=== PATIENT | female | born 1940 | race African-American/Black ===

== ENCOUNTER 2017-04-06 04:57 | Emergency (ER) | payer MEDICARE ==
[2017-04-06] MEDS ORDERED: ACETAMINOPHEN 325 MG TABLET PO ONE (05:13)
--- NOTE | 2017-04-06 05:15 | ER Document Report ---
ED Fall - General Stated Complaint: FALL, Head injury Time Seen by Provider: 04/06/17 05:13 Notes: Patient is a 76-year-old female that comes by EMS for chief complaint of fall and head injury. Patient fell out of her bed tonight, states she thinks she hit her head against the dresser. She did not get knocked out, she has not vomited. She is confused with dementia at baseline. She is not on a blood thinner. No other injuries reported. Patient denies pain other than her head. - Related data Home Medications: Current Home Medications No Home Medications 04/06/17 [History] Past Medical History - General Information source: Patient, Relative - Social History Smoking Status: Never Smoker Frequency of alcohol use: None Drug Abuse: None Lives with: Family Family History: Reviewed & Not Pertinent - Past Medical History Cardiac Medical History: Reports: Hx Hypertension Neurological Medical History: Reports: Other - dementia Psychiatric Medical History: Reports: Hx Anxiety, Hx Depression - Immunizations Hx Diphtheria, Pertussis, Tetanus Vaccination: Yes Review of Systems - Review of Systems Constitutional: No symptoms reported EENT: No symptoms reported Cardiovascular: No symptoms reported Respiratory: No symptoms reported Gastrointestinal: No symptoms reported Genitourinary: No symptoms reported Female Genitourinary: No symptoms reported Musculoskeletal: See HPI Skin: No symptoms reported Hematologic/Lymphatic: No symptoms reported Neurological/Psychological: See HPI Physical Exam - Vital signs Vitals: Temp Pulse Resp BP Pulse Ox 98.5 F 54 L 18 141/100 H 98 04/06/17 05:05 04/06/17 05:05 04/06/17 05:05 04/06/17 05:05 04/06/17 05:05 Interpretation: Normal - General General appearance: Appears well, Alert In distress: None - alert, cooperative, follows directions - HEENT Head: Normocephalic. No: Atraumatic - Moderately large hematoma over the left forehead with some ecchymosis; no bleeding, open wounds, or other traumatic findings. Eyes: Normal Extraocular movements intact: Yes Eyelashes: Normal Pupils: PERRL Ears: Normal External canal: Normal Tympanic membrane: Normal Sinus: Normal Nasal: Normal Mouth/Lips: Normal Mucous membranes: Normal Pharynx: Normal Neck: Normal - Respiratory Respiratory status: No respiratory distress Chest status: Nontender Breath sounds: Normal. No: Decreased air movement, Wheezing Chest palpation: Normal - Cardiovascular Rhythm: Regular. No: Tachycardia Heart sounds: Normal auscultation, S1 appreciated, S2 appreciated Murmur: No - Abdominal Inspection: Normal Distension: No distension Bowel sounds: Normal Tenderness: Nontender. No: Tender, Guarding Organomegaly: No organomegaly - Back Back: Normal, Nontender, Tender - Patient states she has pain with general palpation over the cervical area. No midline tenderness of the thoracic or lumbar spine, no saddle anesthesia.. No: CVA tenderness - Extremities General upper extremity: Other - Patient complains of tenderness with palpation over the left wrist. Normal range of motion at the wrist, no signs of trauma, no snuffbox tenderness, normal radial pulse, normal distal neurovascular exam, normal upper extremity exam otherwise bilaterally General lower extremity: Normal inspection, Nontender, Normal strength, Normal temperature - Neurological Neuro grossly intact: Yes Cognition: Normal Orientation: AAOx4 Joel Coma Scale Eye Opening: Spontaneous [place] Coma Scale Verbal: Oriented [place] Coma Scale Motor: Obeys Commands [place] Coma Scale Total: 15 Speech: Normal Motor strength normal: LUE, RUE, LLE, RLE Sensory: Normal - Psychological Associated symptoms: Normal affect, Normal mood - Skin Skin Temperature: Warm Skin Moisture: Dry Skin Color: Normal Course - Re-evaluation Re-evalutation: On exam patient also complains of neck pain and pain over the left wrist with palpation. No obvious deformities or abnormalities. Neurological exam normal other than her confusion at baseline. CAT scan and x-ray imaging are all negative for any acute abnormality. Patient remains unchanged from her baseline per family. She is actually interactive and cooperative. Discussed results with family in detail. Discussed still monitoring for head injury precautions, follow-up, return precautions. They state understanding and agreement. - Vital Signs Vital signs: Temp Pulse Resp BP Pulse Ox 98.5 F 54 L 18 141/100 H 98 04/06/17 05:05 04/06/17 05:05 04/06/17 05:05 04/06/17 05:05 04/06/17 05:05 Discharge - Discharge Clinical Impression: Head injury Qualifiers: Encounter type: initial encounter Qualified Code(s): S09.90XA - Unspecified injury of head, initial encounter Traumatic hematoma of forehead Qualifiers: Encounter type: initial encounter Qualified Code(s): S00.83XA - Contusion of other part of head, initial encounter Condition: Stable Disposition: HOME, SELF-CARE Additional Instructions: The CAT scan imaging and examination do not indicate any concerning abnormality. Give Tylenol for pain, ice the swollen area of the forehead if needed. Please follow head injury precautions listed below. Return for any concerning symptoms. Head Injury Precautions At this point, there is no evidence that your head injury is serious. Observation is necessary, however. Take only clear liquids for the first few hours, unless told otherwise by the doctor. If no pain medication was prescribed, you may take acetaminophen according to the directions on the bottle. Do not take any medication that may alter your level of alertness (unless you've discussed it with the doctor first) . Limit activity for the first 24 hours. Bed rest is best. During the first 24 hours, check to see approximately every two to three hours that the patient is easily arousable, responds normally, and can perform common tasks such as walking without difficulty. Contact your doctor or go to the hospital if any of the following things occur: Persistent vomiting, difficulty in arousing the patient, worsening or continued headache, or failure to improve as expected. Head injuries can cause symptoms that persist for a few days or even a few weeks.
--- NOTE | 2017-04-06 06:50 | RADIOLOGY REPORT (SQ) ---
EXAM DESCRIPTION: CT CERVICAL SPINE WITHOUT COMPLETED DATE/TIME: 04/06/2017 6:30 am REASON FOR STUDY: fall, pain COMPARISON: None. TECHNIQUE: Axial images acquired through the cervical spine without intravenous contrast. Images re viewed with lung, soft tissue and bone windows. Reconstructed coronal and sagittal MPR images review ed. Images stored on PACS. All CT scanners at this facility use dose modulation, iterative reconstruction, and/or weight based d osing when appropriate to reduce radiation dose to as low as reasonably achievable (ALARA). [facility]: Dose Right [facility]: CareDose [facility]: Dose Right [facility]: Teradose 4D [facility]: Smart Compassoft RADIATION DOSE: Up-to-date CT equipment and radiation dose reduction techniques were employed. CTDIv ol: 23.1 mGy. DLP: 1180 mGy-cm. mGy. LIMITATIONS: None. FINDINGS: ALIGNMENT: 0.2 cm degenerative C3 anterolisthesis. Moderate nonspecific reversed lordotic curvature of the cervicothoracic spine which may indicate soft tissue injury or spasm. MINERALIZATION: Normal. VERTEBRAL BODIES: No fractures or dislocation. Right paracentral posterior C1 fusion defect. DISCS: [id number] disc desiccation between the C2 and T5 levels. FACETS, LATERAL MASSES, POSTERIOR ELEMENTS: Moderate spondylosis. Moderate-severe foraminal stenosis at the left a C3, C4, C5, C6, and C7 foramina; moderate -severe foraminal stenosis at the right C4, C5, and C6 foramina. HARDWARE: None in the spine. VISUALIZED RIBS: No fractures. LUNG APICES AND SOFT TISSUES: No significant or acute findings. OTHER: No other significant finding. IMPRESSION: Moderate nonspecific reversed lordotic curvature of the cervicothoracic spine which may indicate soft tissue injury or spasm. No direct evidence of fracture. Moderate spondylosis. Moder ate disc desiccation. TECHNICAL DOCUMENTATION: JOB ID: [id number] Quality ID # [id number]: Final reports with documentation of one or more dose reduction techniques (e.g., Au tomated exposure control, adjustment of the mA and/or kV according to patient size, use of iterative reconstruction technique) 2010 [employer]- All Rights Reserved
--- NOTE | 2017-04-06 06:54 | RADIOLOGY REPORT (SQ) ---
EXAM DESCRIPTION: CT HEAD WITHOUT COMPLETED DATE/TIME: 04/06/2017 6:30 am REASON FOR STUDY: fall, hematoma COMPARISON: None. TECHNIQUE: Axial images acquired through the brain without intravenous contrast. Images reviewed wi th bone, brain and subdural windows. Images stored on PACS. All CT scanners at this facility use dose modulation, iterative reconstruction, and/or weight based d osing when appropriate to reduce radiation dose to as low as reasonably achievable (ALARA). [facility]: Dose Right [facility]: CareDose [facility]: Dose Right [facility]: Teradose 4D [facility]: Smart A[employer]is RADIATION DOSE: Up-to-date CT equipment and radiation dose reduction techniques were employed. CTDIv ol: 28.0 - 64.6 mGy. DLP: 2187 mGy-cm. mGy. LIMITATIONS: Mild motion artifact. FINDINGS: VENTRICLES: Normal size and contour. CEREBRUM: No masses. No hemorrhage. No midline shift. Normal menendez/white matter differentiation. N o evidence for acute infarction. CEREBELLUM: No masses. No hemorrhage. No alteration of density. No evidence for acute infarction. EXTRAAXIAL SPACES: No fluid collections. No masses. ORBITS AND GLOBE: No intra- or extraconal masses. Normal contour of globe without masses. CALVARIUM: No fracture. PARANASAL SINUSES: No fluid or mucosal thickening. SOFT TISSUES: Mild scalp swelling. OTHER: No other significant finding. IMPRESSION: No acute intracranial findings. TECHNICAL DOCUMENTATION: JOB ID: [id number] Quality ID # [id number]: Final reports with documentation of one or more dose reduction techniques (e.g., Au tomated exposure control, adjustment of the mA and/or kV according to patient size, use of iterative reconstruction technique) 2010 [employer]- All Rights Reserved
--- NOTE | 2017-04-06 06:56 | RADIOLOGY REPORT (SQ) ---
EXAM DESCRIPTION: WRIST LEFT 3 VIEWS COMPLETED DATE/TIME: 04/06/2017 6:31 am REASON FOR STUDY: fall, pain COMPARISON: None. NUMBER OF VIEWS: Three views. TECHNIQUE: AP, lateral, and oblique radiographic images acquired of the left wrist. LIMITATIONS: None. FINDINGS: MINERALIZATION: Osteopenia. BONES: No acute fracture or dislocation. No worrisome bone lesions. Normal alignment. Moderate lef t 1st carpometacarpal osteoarthritis. SOFT TISSUES: No soft tissue swelling. No foreign body. OTHER: No other significant finding. IMPRESSION: NO RADIOGRAPHIC EVIDENCE OF ACUTE INJURY. TECHNICAL DOCUMENTATION: JOB ID: [id number] [employer]- All Rights Reserved
[2017-04-06 07:19] VITALS: BP 132/90
== END 2017-04-06 07:20 | disposition home or self-care (01) ==
LOC: ER 04:57
DX: S09.90XA Unspecified injury of head, initial encounter (principal); S00.83XA Contusion of other part of head, initial encounter; W06.XXXA Fall from bed, initial encounter
CPT/HCPCS: 99284; 73110; 70450; 72125; A9270